=== PATIENT | female | born 1955 | race Hispanic/Latino ===

== ENCOUNTER 2017-06-28 13:44 | Emergency (ER) | payer BC ==
[2017-06-28 13:52] VITALS: RESP 20; O2SAT 99
--- NOTE | 2017-06-28 14:10 | C.PDOC ---
History Of Present Illness 62 yo female come in for evaluation of Right knee pain gradually developed for past few weeks. Pt reports, pain is localized over medial aspect Right knee, worse with knee bend. Pt denies known trauma or injury, fever, chills, deformity to Right knee, skin changes, swelling, weakness, sensory or vascular deficits to Right leg. Ambulate to Ed for evaluation, no in any apparent distress. Time Seen by Provider: 06/28/17 14:01 Chief Complaint (Nursing): Lower Extremity Problem/Injury History Per: Patient Onset/Duration Of Symptoms: Gradual Past Medical History Reviewed: Historical Data, Nursing Documentation, Vital Signs Vital Signs: Last Vital Signs Temp 98.2 F 06/28/17 13:48 Pulse 81 06/28/17 13:48 Resp 20 06/28/17 13:48 BP 149/90 06/28/17 13:48 Pulse Ox 99 06/28/17 14:09 - Medical History PMH: HTN Family History: States: No Known Family Hx - Social History Hx Alcohol Use: Yes Hx Substance Use: No - Immunization History Hx Tetanus Toxoid Vaccination: Yes Hx Influenza Vaccination: No Hx Pneumococcal Vaccination: No Review Of Systems Except As Marked, All Systems Reviewed And Found Negative. Constitutional: Negative for: Fever, Chills ENT: Negative for: Throat Pain Musculoskeletal: Positive for: Other (Right knee pain) Skin: Negative for: Rash, Bruising Neurological: Negative for: Weakness, Numbness Physical Exam - Physical Exam Appears: Well, Non-toxic, No Acute Distress Skin: Normal Color, Warm, No Rash, No Ecchymosis Extremity: Normal ROM (mild discomfort to Right knee flexion. Otherwise, FAROM, no neurovascuar deficist distally.), Tenderness (ove rmedial aspect Right knee) , No Pedal Edema, No Calf Tenderness (B/L), Capillary Refill (less than 2sec to Right foot), No Deformity (Right knee), No Swelling (Right leg) Neurological/Psych: Oriented x3, Normal Speech, Normal Motor, Normal Sensation, Normal Reflexes ED Course And Treatment O2 Sat by Pulse Oximetry: 99 - Other Rad Right knee X-Ray: Interpreted by Me, Viewed By Me Interpretation: (+)mild DJD, no acute fx or dislocation Progress Note: On re-eval, pt is afebrile, hemodynamicaly stable. Non-toxic. Ambulatory in ED, stable gait. PulseOx 99% RA. ENT: no acute findings. Right knee: exam c/w knee arthralgia, No deformity, no edema, no skin changes. FAROM, no neurovascular deficits. Xray review (-) acute findings. parent advised. ref. to f/u with Ortho in 2-3 days for re-eval. return to ED if any worsening or new changes. Disposition Counseled Patient/Family Regarding: Studies Performed, Diagnosis, Need For Followup, Rx Given - Disposition Referrals: [facility] [Outside] [facility] [place] [Outside] Disposition: HOME/ ROUTINE Disposition Time: 14:59 Condition: STABLE Additional Instructions: RICE_REST,ICE,COMPRESSION, ELEVATION TYLENOL 1G EVERY 8 HOURS FOLLOW UP WITH ORTHO IN 2-3 DAYS FOR RE-EVALUATION. RETURN TO ED IF ANY WORSENING OR NEW CHANGES. Instructions: Knee Pain (ED), Arthralgia (ED) Forms: [facility] [employer] (Swedish) - Clinical Impression Clinical Impression: Arthralgia of knee
[2017-06-28 15:50] VITALS: BP 142/86; PULSE 78; TEMP 98
--- NOTE | 2017-06-28 15:50 | RAD ---
PROCEDURE: Right Knee Radiographs. HISTORY: pain COMPARISON: None. FINDINGS: BONES: Normal. No fracture. JOINTS: Normal. No osteoarthritis. JOINT EFFUSION: None. OTHER FINDINGS: None. IMPRESSION: Normal radiographs of the right knee.
== END 2017-06-28 15:49 | disposition home or self-care (01) ==
LOC: C.ER 13:44
DX: M25.561 Pain in right knee (principal)